=== PATIENT | male | born 1980 | race Hispanic/Latino ===

== ENCOUNTER 2017-07-18 16:13 | Emergency (ER) | payer OTHER ==
[~2017-07-18] VITALS: Ht 188 cm; Wt 188.2 kg
--- OUTSIDE RECORDS SUMMARY | 2017-07-18 16:15 | XMS REPORT | Clinical Summary ---
Author Author [facility] Organization [facility] Address Unknown Phone Unavailable Care Team Providers Care Onion Farmer Name Role Phone Asked, Pcp PCP Unavailable Allergies No Known Allergies Current Medications Prescription Sig. Disp. Refills Start End Date Status Date meloxicam (MOBIC) 15 mg Take 1 tablet (15 mg 30 tablet 1 12/04/19 Active tablet total) by mouth daily. 17 Active Problems No known active problems Encounters Date Type Specialty Care Team Description 12/14/2016 Hospital Physical Therapy Brendan Alicea Patellar tendinitis of Encounter MD Heriberto left knee; Komal Small PT Acute pain of left knee 12/08/2016 Orders Only Orthopedic Surgery Leah Santiago MA Patellar tendinitis of left knee (Primary Dx); Acute pain of left knee 12/07/2016 Abstract Orthopedic Surgery Leah Santiago MA 12/03/2016 Office Visit Orthopedic Surgery Brendan Alicea Arthralgia of both knees MD Heriberto (Primary Dx); Acute pain of both knees; Knee effusion, left after 07/17/2016 Social History Tobacco Use Types Packs/Day Years Used Date Never Smoker Alcohol Use Drinks/Week oz/Week Comments Yes socially Sex Assigned at Date Recorded Not on file Last Filed Vital Signs Vital Sign Reading Time Taken Blood Pressure - - Pulse - - Temperature - - Respiratory Rate - - Oxygen Saturation - - Inhaled Oxygen - - Concentration Weight 218 kg (480 lb) 12/03/2016 9:18 AM CDT Height 188 cm (6' 2") 12/03/2016 9:18 AM CDT Body Mass Index 61.63 12/03/2016 9:18 AM CDT Plan of Treatment Health Maintenance Due Date Last Done Comments INFLUENZA VACCINE 10/06/2017 11/27/2009 Procedures Procedure Name Priority Date/Time Associated Diagnosis Comments AR ARTHROCENTESIS Routine 12/10/2016 Arthralgia of both knees Results for this ASPIR&/INJ MAJOR JT/BURSA 8:34 AM CDT procedure are in the W/O US results section. after 07/17/2016 Results * Large Joint Arthrocentesis (12/10/2016 8:34 AM) Narrative Brendan Alicea Jr., MD 12/10/20168:34 AM Large Joint Arthrocentesis Consent given by: patient Site marked: site marked Supporting Documentation Indications: pain Procedure Details Preparation: Patient was prepped and draped in the usual sterile fashion Location: knee - L knee Left side: Needle size: 22 G Approach: anterolateral Left knee medications administered: 80 mg methylPREDNISolone acetate 80 mg/mL; 2 mL bupivacaine 0.5 % (5 mg/mL) Patient tolerance: patient tolerated the procedure well with no immediate complications * XR Knee 3 Vw Bilateral (12/03/2016 9:25 AM) Specimen Performing Laboratory [facility] [address] [place] [address] Narrative No obvious acute or chronic abnormalities besides some early patellofemoral chondromalacia. after 07/17/2016 Insurance Payer Benefit Subscriber ID Type Phone Address Plan / Group [facility] xxxxxxxxx HMO/PPO THCARE CHOICE/CHO ICE +
== END 2017-07-18 18:16 | disposition home or self-care (01) ==
LOC: FSED 16:13
DX: S81.811A Laceration without foreign body, right lower leg, initial encounter (principal); W26.8XXA Contact with other sharp object(s), not elsewhere classified, initial encounter; Y92.008 Other place in unspecified non-institutional (private) residence as the place of occurrence of the external cause; G47.30 Sleep apnea, unspecified; E66.01 Morbid (severe) obesity due to excess calories
CPT/HCPCS: 99284

== ENCOUNTER 2017-08-03 10:42 | Emergency (ER) | payer OTHER ==
[~2017-08-03] VITALS: Ht 188 cm; Wt 192.8 kg
--- OUTSIDE RECORDS SUMMARY | 2017-08-03 10:44 | XMS REPORT | Continuity of Care Document ---
Author Author [facility] Organization [facility] Address [address] [place] [address] Phone Unavailable Care Team Providers Care Timber Skidder Name Role Phone NO, PCP PCP Unavailable Advance Directives Directive Response Recorded Date/Time Does the patient have an advance directive? No 07/18/17 4:51pm If yes, is advance directive on file with [facility]? No 07/18/17 4:51pm If not on file with [facility] will patient provide a copy? No 07/18/17 4:51pm Do you have a Directive to Physician? No 07/18/17 4:51pm Do you have a Medical Power of Ordnance Engineer? No 07/18/17 4:51pm Do you have an out of hospital Do Not Resuscitate Order? No 07/18/17 4:51pm Do you have any special needs we should be aware of? No 07/18/17 4:51pm Do you have a support person here with you today? Yes 07/18/17 4:51pm Did patient receive Notice of Privacy Practices? Yes 07/18/17 4:51pm Did patient receive patient rights and responsibilities? Yes 07/18/17 4:51pm Problems No problem information available. Medications No medication information available. Social History No social history information available. Hospital Discharge Instructions No hospital discharge instruction information available. Plan of Care Discharge Date 07/18/17 6:16pm Disposition HOME, SELF-CARE Condition at Discharge Stable Instructions/Education Provided Laceration Prescriptions See Medication Section Referrals DELGADO WHITE MD Address: [address] [place] [address] Additional Instructions/Education Suture out in 10-14 days. Monitor bp and keep log. Follow up with referral physician. Functional Status No functional status information available. Allergies, Adverse Reactions, Alerts No known allergies. Immunizations No immunization information available. Vital Signs Acute Vital Signs Vital Response Date/Time Height 6 ft 2 in 07/18/2017 4:31pm Weight 415 lb 07/18/2017 4:31pm Body Mass Index 53.3 kg/m^2 07/18/2017 4:31pm Results No relevant diagnostic test, laboratory data and/or discharge summary information available. Procedures No procedure information available. Encounters Encounter Location Arrival/Admit Date Discharge/Depart Date Attending Provider Registered Emergency Room [facility] 07/18/17 4:13pm MATTHEW ESCOBEDO MD
--- OUTSIDE RECORDS SUMMARY | 2017-08-03 10:44 | XMS REPORT | Clinical Summary ---
Author Author [facility] Organization [facility] [employer] Address Unknown Phone Unavailable Care Team Providers Care Wound/Ostomy Nurse Name Role Phone Asked, Pcp PCP Unavailable [...] of both knees; Knee effusion, left after 08/02/2016 Social History Tobacco Use Types Packs/Day Years [...] Procedure Name Priority Date/Time Associated Diagnosis Comments [place] ARTHROCENTESIS Routine 12/10/2016 Arthralgia of both knees Results for this ASPIR&/INJ MAJOR JT/BURSA 8:34 AM CDT procedure are in the W/O US results section. after 08/02/2016 Results * Large Joint Arthrocentesis (12/10/2016 8:34 [...] Bilateral (12/03/2016 9:25 AM) Specimen Performing Laboratory [facility] [address] [place] [address] Narrative No obvious acute or chronic abnormalities besides some early patellofemoral chondromalacia. after 08/02/2016 Insurance Payer Benefit Subscriber ID Type Phone Address Plan / Group [facility] xxxxxxxxx HMO/PPO THCARE CHOICE/CHO ICE +
[2017-08-03 11:13] VITALS: BP 150/80
== END 2017-08-03 11:14 | disposition home or self-care (01) ==
LOC: FSED 10:42
DX: Z48.02 Encounter for removal of sutures (principal)
CPT/HCPCS: 99282